=== PATIENT | male | born 1950 | race Caucasian/White ===

== ENCOUNTER 2022-08-30 09:23 | Outpatient (CLI) | payer MEDICARE, BC, SELFPAY ==
[2022-08-30 14:05] LABS: Chloride* 105 mmol/L (96-114)
[2022-08-30 14:06] LABS: Potassium* 4.7 mmol/L (3.6-5.1); Sodium* 139 mmol/L (135-149)
[2022-08-30 14:08] LABS: Creatinine* 0.9 mg/dL (0.5-1.5); Estimated Glomerular Filt Rate 90 ml/min
[2022-08-30 14:09] LABS: Blood Urea Nitrogen* 20 mg/dL (7-30); Calcium* 9.4 mg/dL (8.4-10.6); Carbon Dioxide* 31 mmol/L (20-32); Glucose* 97 mg/dL (60-115)
== END 2022-08-30 09:24 | disposition home or self-care (01) ==
PROVIDERS: PCP Family Medicine; Visit Provider Family Medicine
DX: Z01.818 Encounter for other preprocedural examination (principal)
CPT/HCPCS: 80048

== ENCOUNTER 2022-09-13 07:02 | Day surgery (SDC) | payer MEDICARE, BC, SELFPAY ==
[2022-09-13] VITALS (35 sets, daily range): BP systolic 104–161; BP diastolic 57–96; PULSE 46–87; RESP 12–18; TEMP 35.9–36.8; O2SAT 93–99; BMI 28.8
[2022-09-13] MEDS: LACTATED RINGERS 1000 ML 1,000 ML 100 ML IV ×2 (07:50→10:10)
[2022-09-13] MEDS: ACETAMINOPHEN 500 MG TABLET 1000 MG PO ×3 (07:50→21:44)
[2022-09-13] MEDS: SODIUM CHLORIDE 0.9 % (FLUSH) 10 ML SYRINGE IVF (07:50)
[2022-09-13] MEDS: CELECOXIB 200 MG CAPSULE PO (07:50)
[2022-09-13] MEDS: OXYCODONE (CR) 10 MG TAB.ER.12H PO (07:51)
--- NOTE | 2022-09-13 08:12 | SUR.PREOP ---
TIME?OUT:? PT/RN/MDA?VERIFICATION?OF?SURGICAL?SITE,?PROCEDURE,?AND?CONSENT OBTAINED?PRIOR?TO?INVASIVE?PROCEDURE.[id number]
[2022-09-13] MEDS: MIDAZOLAM HCL 1 MG/ML inj IVP (08:15)
[2022-09-13] MEDS: fentaNYL 100 MCG/2 ML inj IVP (08:15)
--- NOTE | 2022-09-13 08:22 | W.ANESCHARGE ---
Anesthesia Charges Start Date/Time Anesthesia Start Date: 09/13/22 Anesthesia Start Time: 09:05 Stop Date/Time Anesthesia Stop Date: 09/13/22 Anesthesia Stop Time: 11:17 Summary Extremes of Age - Over 70 or under 1: MDA
--- NOTE | 2022-09-13 08:27 | P.NB_ITS ---
Nerve Block Nerve Block Time Seen by Provider: 08:18 Date Seen: 09/13/22 Type of block requested by surgeon for post-operative analgesia: geniculars Side: left Time out performed: Yes Verification of patient name: Yes Verification of date of : Yes Site marking: site marked Name of person performing procedure: Abdiaziz Continuous monitoring Was continuous monitoring of O2 sat, B/P, school bus monitor, recorded every 15 minutes?: Yes Procedure Checklist: sterile prep, needles and gloves Medications given in 5ml increments after negative aspiration: Ropivicaine %: 0.5 mL: 9 Needle gauge: 25 Patient tolerated procedure well: Yes Block Charges Block Charge (with Pro Fee): Genicular Nerve Block Use of Ultrasound Machine for Block: No
--- NOTE | 2022-09-13 08:27 | W.PM.NB ---
Nerve Block Nerve Block Time Seen by Provider: 08:18 Date Seen: 09/13/22 Type of block requested by surgeon for post-operative analgesia: adductor canal Side: left Time out performed: Yes Verification of patient name: Yes Verification of date of : Yes Site marking: site marked Name of person performing procedure: Abdiaziz Continuous monitoring Was continuous monitoring of O2 sat, B/P, satellite project site monitor, recorded every 15 minutes?: Yes Procedure Checklist: sterile prep, needles and gloves Ultrasound guided. Images saved: Yes Medications given in 5ml increments after negative aspiration: Ropivicaine %: 0.5 mL: 20 Needle gauge: 20 Decadron (mg): 10 Precedex (mcg): 25 Patient tolerated procedure well: Yes Additional comments: Needle noted adjacent to nerve Block Charges Block Charge (with Pro Fee): Femoral Nerve Use of Ultrasound Machine for Block: Yes- US Guidance/pain block
[2022-09-13] MEDS: CEFAZOLIN 2 GM INJ IVP (09:17)
[2022-09-13] MEDS: TRANEXAMIC ACID 100 MG/ML INJ 1000 MG IV (09:25)
--- NOTE | 2022-09-13 10:23 | CRLHL7_ITS ---
For Patients: As a result of the Cures Act, medical imaging exams and procedure reports are released immediately into your electronic medical record. You may view this report before your referring provider. If you have questions, please contact your health care provider. Indication: POSTOP TKA Technique: Two views left knee Findings/Impression: Hardware from a left total knee arthroplasty is in satisfactory position. Bone alignment is normal. No sign of acute fracture. Postop changes are within normal limits. Dictated by Luis Eduardo Boyle MD @ 09/13/2022 12:17:15 PM (Electronically Signed)
--- NOTE | 2022-09-13 10:26 | P.ORPRC_ITS ---
Procedure Note Date of procedure: 09/13/22 Procedure: PREOPERATIVE DIAGNOSIS: Left knee osteoarthritis POSTOPERATIVE DIAGNOSIS: Left knee osteoarthritis NAME OF OPERATION: Left total knee arthroplasty SURGEON: Logan Carranza MD ASSISTANT FACILITY MANAGER: Tracie Wynn PA-C ANESTHESIA: Spinal ESTIMATED BLOOD LOSS: 0 mL COMPLICATIONS: None SPECIMENS: None DRAINS: None PREOPERATIVE ANTIBIOTICS: Ancef 2 grams IMPLANTS: 1. J&J Attune #6 posterior stabilized femur 2. #6 fixed-bearing tibia 3. #6 posterior stabilized, 6 mm fixed-bearing polyethylene 4. 41 patella INDICATIONS: The patient is a 71-year-old with a longstanding history of severe, unrelenting left knee pain secondary to end-stage (grade IV) left knee osteoarthritis. Despite appropriate nonoperative management, including activity modification, anti-inflammatories, [id number] pain medication, bracing, physical therapy, and injections they continue to have pain and disability. Operative intervention was offered. The risks, benefits and expected outcomes were discussed in detail. These included but were not limited to: Infection, bleeding, injury to blood vessel or nerve, venous thromboembolism. All questions were answered to their satisfaction. Use of an legal administrative assistant was necessary throughout the case for patient positioning and safety, soft tissue retraction, and closure. PROCEDURE: Spinal anesthesia was administered. The patient was placed supine on the operating table. The legal administrative assistant made sure the patient was positioned appropriately. The lower extremity was prepped and draped in the usual sterile fashion. The limb was exsanguinated with the Taj bandage. The pneumatic tourniquet was inflated to 300 mmHg. A standard anterior incision was made with the knee in flexion. Subcutaneous dissection was sharply taken through fascial layer #1. Full-thickness medial and lateral flaps were elevated. The legal administrative assistant retracted the soft tissues and protected them throughout the case. A standard medial parapatellar approach was made. The patella was everted. The infrapatellar fat pad was preserved. The m enisci and cruciate ligaments were sharply d?brided. Marginal osteophytes were d?brided with the rongeur. The drill was used to penetrate the femoral canal. The canal was aspirated and irrigated with pulse lavage. The intramedullary femoral guide was placed for a 5-degree valgus cut, removing 10 mm off the distal femur. The saw was used to make the cut. Whitesides line and the trans epicondylar axis were marked. The femoral sizing guide was pinned onto the distal femur. Three degrees of external rotation nicely parallels the transepicondylar axis. Pins were placed for posterior referencing. The four-in-one cutting guide was pinned onto the distal femur. The anterior, posterior, and chamfer cuts were made. The legal administrative assistant protected the collateral ligaments. The box cutting guide was pinned. The box cuts were made. The boxed trial was placed and was an excellent fit. Drill holes for the lugs were made. Attention was then turned to the proximal tibia. The extramedullary tibial guide was placed for a neutral varus/valgus cut with 5 degrees of posterior slope, removing 1 mm based off the medial tibial surface. The legal administrative assistant protected the collateral ligaments and the neurovascular bundle. The saw was used to make the cut. Trial components were placed. The knee was nicely balanced in both flexion and extension. The trial components were removed. The tray was placed in appropriate rotation, parallel to our tibial cutting pins. It was pinned by the legal administrative assistant and the drill and the punch were used. The tray was removed. The punch was used again. We placed a bone plug in the femoral canal. Attention was then turned to the patella. Kotlik patellar thickness was 21.5 mm. The lobster claw resection guide was used with the 9.5 mm becca. The saw was used to make the cut. Drill holes were made by the legal administrative assistant. The trial was placed and was an excellent fit. Cancellous surfaces were irrigated with pulse lavage and thoroughly dried by the legal administrative assistant. We cemented the tibial component, then the femoral component. We impacted the 6 mm polyethylene onto the tibial tray. The knee was brought into full extension. We then cemented the patellar component. Excessive cement was removed. The cement was allowed to harden. The knee was taken through a range of motion and was found to be nicely balanced in both flexion and extension. The patella tracks centrally. The legal administrative assistant did a three minute dilute Betadine solution soak. The legal administrative assistant irrigated the wound with 3 liters of normal saline via pulse lavage. The legal administrative assistant reapproximated the extensor mechanism with #1 Vicryl in an interrupted [id number] fashion. The legal administrative assistant then ran the extensor mechanism with a #1 PDO Stratafix. The legal administrative assistant closed the subcutaneous tissues with a 3-0 Stratafix and the skin with a running 3-0 Stratafix in a subcuticular fashion. Glue was used to seal the skin. The legal administrative assistant placed a dry dressing, GABBY stocking, and Polar Care. Sponge and needle counts were correct x2. The patient tolerated the procedure well. There were no apparent complications. They were carefully transferred to the hospital bed and taken to the postanesthesia care unit in satisfactory condition. PLAN: The patient will be mobilized with physical therapy. Aspirin will be used for DVT prophylaxis. They will be discharged to home once medically appropriate.
--- NOTE | 2022-09-13 11:17 | W.ANESCHARGE ---
Anesthesia Charges Start Date/Time Anesthesia Start Date: 09/13/22 Anesthesia Start Time: 09:05 Stop Date/Time Anesthesia Stop Date: 09/13/22 Anesthesia Stop Time: 11:17
--- NOTE | 2022-09-13 15:24 | P.IMCN_ITS ---
Date of Consult Patient: [facility] Patient Consult date: 09/13/22 Requesting Physician: Orthopedics Primary Care Provider: Nico Loja MD Consult Narrative Reason for consult: medication management Narrative: Hai Winchester is a 71 year old male who underwent an uneventful elective left total knee arthroplasty today. He is doing well postoperatively and has no co mplaints. He has had no pain in his knee yet. He had his right knee done in November 2021 and recalls being very constipated afterward. He started taking doc is set at home a few days ago. Also he tells me that he only took 7 of the oxycodone pills he was sent home with last time and was asking if we could send him home with very little or even know oxycodone this time. He still has some of the prescription from last time at home. 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 His is here with him today. Smoking Status: Never smoker Do you use any of these nicotine containing products: None How often do you have a drink containing alcohol: 4 or more times a week Alcohol type: beer How many standard drinks containing alcohol do you have on a typical day: 1 or 2 How often do you have six or more drinks on one occasion: Never AUDIT-C Alcohol total score: 4 Non-prescribed substance use: denies use Caffeine: Yes (coffee 16 oz per day, tea 1 cup/day.) Little interest or pleasure in doing things: not at all Feeling down, depressed, or hopeless: not at all service: Yes Meds Home Medications and Allergies Home Medications Medication Instructions Recorded Confirmed Type acetaminophen 500 mg tablet 1,000 mg PO Q4H PRN 01/07/22 09/13/22 History amoxicillin 500 mg capsule 2,000 mg PO ONCE 01/07/22 09/13/22 History cyanocobalamin (vitamin B-12) 2,500 mcg PO DAILY 01/07/22 09/13/22 History 2,500 mcg tablet ergocalciferol (vitamin D2) 50 mcg 250 mcg PO DAILY 01/07/22 09/13/22 History (2,000 unit) tablet aspirin 81 mg tablet,delayed 81 mg PO QDAY 05/27/22 09/13/22 History release Allergies Allergy/AdvReac Type Severity Reaction Status Date / Time No Known Allergies Allergy Verified 09/13/22 07:29 Exam Narrative: Exam Narrative: General: No acute distress. Awake alert oriented x3. HEENT: Normocephalic atraumatic, pupils equally round and reactive to light and accommodation. Oropharynx clear. Mucous membranes are moist. No cervical lymphadenopathy, thyromegaly or carotid bruits. No JVD. Cardiovascular: Regular rate and rhythm. No murmurs, gallops, or rubs. Chest: No increased work of breathing. Clear to auscultation bilaterally. No crackles or wheezes. Abdomen: Bowel sounds present. Soft, nondistended, nontender. No hepatosplenomegaly or masses. Extremities: Left knee bandage is clean, dry, and intact. No edema, no cyanosis or clubbing. Const: Vital Signs, click to edit/add: Vital Signs - 24 hr 09/13/22 07:36 09/13/22 08:14 09/13/22 08:30 Temperature 98.3 F Pulse Rate 53 L 57 L 52 L Pulse Rate [Left P ulse Oximeter] Respiratory Rate 18 16 16 Blood Pressure 136/79 150/84 H 113/70 Blood Pressure [Ri ght Arm] Pulse Oximetry 97 99 99 Oxygen Delivery Me thod Room Air Nasal Cannula Nasal Cannula Oxygen Flow Rate 2 2 09/13/22 08:45 09/13/22 11:13 09/13/22 11:14 Temperature Pulse Rate 52 L 60 58 L Pulse Rate [Left P ulse Oximeter] Respiratory Rate 16 Blood Pressure 109/68 104/57 L Blood Pressure [Ri ght Arm] Pulse Oximetry 99 98 98 Oxygen Delivery Me thod Nasal Cannula Oxygen Flow Rate 2 09/13/22 11:15 09/13/22 11:17 09/13/22 11:21 Temperature Pulse Rate 61 55 L 51 L Pulse Rate [Left P ulse Oximeter] Respiratory Rate Blood Pressure 105/60 114/65 Blood Pressure [Ri ght Arm] Pulse Oximetry 97 97 97 Oxygen Delivery Me thod Oxygen Flow Rate 09/13/22 11:22 09/13/22 11:23 09/13/22 11:24 Temperature Pulse Rate 51 L 55 L 55 L Pulse Rate [Left P ulse Oximeter] Respiratory Rate 12 Blood Pressure 114/60 Blood Pressure [Ri ght Arm] Pulse Oximetry 97 96 97 Oxygen Delivery Me thod Oxygen Flow Rate 09/13/22 11:25 09/13/22 11:26 09/13/22 11:27 Temperature Pulse Rate 55 L 57 L 52 L Pulse Rate [Left P ulse Oximeter] Respiratory Rate Blood Pressure 114/60 Blood Pressure [Ri ght Arm] Pulse Oximetry 97 97 96 Oxygen Delivery Me thod Oxygen Flow Rate 09/13/22 11:28 09/13/22 11:29 09/13/22 11:12 Temperature 97.4 F L 97.4 F L Pulse Rate 55 L 52 L 55 L Pulse Rate [Left P ulse Oximeter] Respiratory Rate 12 14 Blood Pressure 110/64 104/57 L Blood Pressure [Ri ght Arm] Pulse Oximetry 97 96 97 Oxygen Delivery Me thod Room Air Oxygen Flow Rate 09/13/22 11:15 09/13/22 11:35 09/13/22 11:40 Temperature Pulse Rate 49 L 49 L Pulse Rate [Left P ulse Oximeter] Respiratory Rate 14 14 Blood Pressure 105/60 111/64 113/62 Blood Pressure [Ri ght Arm] Pulse Oximetry 96 95 94 Oxygen Delivery Me thod Room Air Room Air Room Air Oxygen Flow Rate 2 2 09/13/22 11:45 09/13/22 11:58 09/13/22 12:00 Temperature 96.8 F L 97 F L Pulse Rate 50 L 52 L Pulse Rate [Left P ulse Oximeter] 48 L Respiratory Rate 14 14 14 Blood Pressure 119/77 Blood Pressure [Ri ght Arm] 118/65 130/66 Pulse Oximetry 96 98 Oxygen Delivery Me thod Room Air Room Air Room Air Oxygen Flow Rate 2 09/13/22 12:15 09/13/22 12:30 09/13/22 12:45 Temperature 96.7 F L 96.7 F L 96.8 F L Pulse Rate Pulse Rate [Left P ulse Oximeter] 46 L 49 L 48 L Respiratory Rate 14 14 14 Blood Pressure Blood Pressure [Ri ght Arm] 122/59 L 123/70 139/73 Pulse Oximetry 95 98 97 Oxygen Delivery Me thod Room Air Room Air Room Air Oxygen Flow Rate 2 09/13/22 13:15 09/13/22 13:45 09/13/22 14:45 Temperature 96.8 F L 97 F L 97.6 F Pulse Rate Pulse Rate [Left P ulse Oximeter] 58 L 53 L 61 Respiratory Rate 14 14 14 Blood Pressure Blood Pressure [Ri ght Arm] 127/96 H 127/73 161/79 H Pulse Oximetry 98 98 97 Oxygen Delivery Me thod Room Air Room Air Room Air Oxygen Flow Rate 09/13/22 15:00 09/13/22 15:00 Temperature Pulse Rate Pulse Rate [Left P ulse Oximeter] Respiratory Rate 14 Blood Pressure Blood Pressure [Ri ght Arm] Pulse Oximetry 98 Oxygen Delivery Me thod Oxygen Flow Rate Labs Labs: Ordering Physician: Logan Carranza M.D. Date of Service: 09/13/22 Procedure(s): XR knee LT 2V Accession Number(s): [id number] cc: Logan Carranza M.D.; Nico Loja M.D.~ For Patients: As a result of the Cures Act, medical imaging exams and procedure reports are released immediately into your electronic medical record. You may view this report before your referring provider. If you have questions, please contact your health care provider. Indication: POSTOP TKA Technique: Two views left knee Findings/Impression: Hardware from a left total knee arthroplasty is in satisfactory position. Bone alignment is normal. No sign of acute fracture. Postop changes are within normal limits. Dictated by Luis Eduardo Boyle MD @ 09/13/2022 12:17:15 PM (Electronically Signed) Assessment and Plan Assessment and plan (1) Status post total knee replacement, left: Problem comment: 09/13/22 Tere Elective, doing well. Cares per ortho. BID baby ASA for VTE prophylaxis. Status: Acute (2) Obstructive sleep apnea treated with continuous positive airway pressure (CPAP): Status: Chronic (3) Bradycardia: Problem comment: Takes no prescription medications at home. Suspect this was secondary to anesthesia. This has already resolved. Status: Resolved Plan VTE
[2022-09-13] MEDS: CEFAZOLIN 2 GM in 0.9 % SODIUM CHLORIDE Mini-bag 100 ML IVPB ×2 (17:15→23:52)
[2022-09-13] MEDS: OXYCODONE 5 MG TABLET PO ×2 (18:23→20:52)
--- NOTE | 2022-09-13 18:30 | PC.NURSE ---
End of Shift: Patient pleasant and cooperative. Patient vitally stable, lungs clear, BS WNL, IV running LR @75. Patient rates pain at most 4/10, 5 mg of oxy given once, and scheduled tylenol. Patient 1 assist, walker, currently up in chair. Patient tolerating regular diet. Patient had 1 small emesis right after therapy, and reported no nausea after emesis. Patient used toilet once only urinating 50ml.
[2022-09-13] MEDS: 0.9 % SODIUM CHLORIDE 500 ML IV (19:17)
[2022-09-13] MEDS: SENNOSIDES 1 TAB TABLET 2 TAB PO (20:52)
[2022-09-13] MEDS: ASPIRIN 81 MG TABLET EC PO (20:52)
[2022-09-13] MEDS: LACTATED RINGERS 1000 ML 1,000 ML 75 ML IV (23:48)
[2022-09-14] MEDS: OXYCODONE 5 MG TABLET PO ×2 (01:01→08:40)
[2022-09-14 03:00] VITALS: BP 143/76; PULSE 65; RESP 16; TEMP 36.4; O2SAT 95
[2022-09-14] MEDS: ACETAMINOPHEN 500 MG TABLET 1000 MG PO (03:35)
--- NOTE | 2022-09-14 04:53 | PC.NURSE ---
Addendum entered by Chente Ware RN 09/14/22 05:54: Hypoactive bowel movement and pt has not pass gas yet. Original Note: Shift note: Pt is doing with A1, walker and GB. Able to mobilized self in bed. Pain has been rated at 5 at maximum. Dressing appears clean and dry. At 1900 when quality analyst/technical writer took over from PM shift pt had only 50ml of urine. N/S 500ml bolus given and pt had 600ml an hour after the infusion was started. Started regular diet and oral fluid with no complication. Used urinal most of the time per his request.
[2022-09-14 06:37] LABS: Eosinophils Percent Auto 0.1 % (0.0-7.0); Hematocrit 37.4 % (37.0-53.0); Immature Granulocytes Pct Auto 0.2 %; Lymphocytes Percent Auto 6.3 % (20-44); Mean Corpuscular HGB Conc 35 gm/dL (32-36); Mean Corpuscular Hemoglobin 29 pg (26-34); Mean Corpuscular Volume 85 fL (80-100); Neutrophils Percent Auto 87.4 % (42.0-72.0); Platelet Count* 169 K/uL (140-440); Red Blood Count 4.42 m/uL (4.30-5.90); White Blood Count* 12.61 K/uL (4.50-11.00)
[2022-09-14 06:40] LABS: Slide Review Reflex No
[2022-09-14 06:48] LABS: Potassium* 4.1 mmol/L (3.6-5.1); Sodium* 136 mmol/L (135-149)
[2022-09-14 06:49] LABS: INR 1.15 (0.91-1.10); Prothrombin Time 15.4 Seconds
[2022-09-14 06:51] LABS: Blood Urea Nitrogen* 19 mg/dL (7-30); Creatinine* 0.8 mg/dL (0.5-1.5); Est. Creatinine Clearance* 63.65; Estimated Glomerular Filt Rate 93 ml/min
[2022-09-14 07:00] VITALS: BP 173/88; PULSE 67; RESP 16; TEMP 36.6; O2SAT 97
[2022-09-14] MEDS: CEFAZOLIN 2 GM in 0.9 % SODIUM CHLORIDE Mini-bag 100 ML IVPB (08:09)
--- NOTE | 2022-09-14 08:29 | P.ORPN_ITS ---
Subjective Subjective Time Seen by Provider: 07:15 Date Seen: 09/14/22 Principal diagnosis: Status post left total knee arthroplasty Interval history: Hai is comfortable this morning. He denies nausea, vomiting. He plans to discharge to home today. He still has some oxycodone from his previous knee replacement. Ortho Exam Narrative Exam Narrative: Alert and oriented x3. Patient is in no acute distress. Converses without labored breathing. Hearing is grossly intact. Ambulates with a walker. Examination of the left knee shows the dressing is intact. No palpable effusion. Minimal soft tissue edema about the left knee. Quad strength is strong. CMS intact left lower extremity. No erythema no ecchymosis no sign of infection. Bilateral calves are soft and nontender. Const Vital Signs, click to edit/add: Vital Signs - 24 hr 09/13/22 08:30 09/13/22 08:45 09/13/22 11:13 Temperature Pulse Rate 52 L 52 L 60 Pulse Rate [Left Pulse Oximeter] Respiratory Rate 16 16 Blood Pressure 113/70 109/68 Blood Pressure [Right Arm] Pulse Oximetry 99 99 98 Oxygen Delivery Method Nasal Cannula Nasal Cannula Oxygen Flow Rate 2 2 09/13/22 11:14 09/13/22 11:15 09/13/22 11:17 Temperature Pulse Rate 58 L 61 55 L Pulse Rate [Left Pulse Oximeter] Respiratory Rate Blood Pressure 104/57 L 105/60 Blood Pressure [Right Arm] Pulse Oximetry 98 97 97 Oxygen Delivery Method Oxygen Flow Rate 09/13/22 11:21 09/13/22 11:22 09/13/22 11:23 Temperature Pulse Rate 51 L 51 L 55 L Pulse Rate [Left Pulse Oximeter] Respiratory Rate 12 Blood Pressure 114/65 Blood Pressure [Right Arm] Pulse Oximetry 97 97 96 Oxygen Delivery Method Oxygen Flow Rate 09/13/22 11:24 09/13/22 11:25 09/13/22 11:26 Temperature Pulse Rate 55 L 55 L 57 L Pulse Rate [Left Pulse Oximeter] Respiratory Rate Blood Pressure 114/60 114/60 Blood Pressure [Right Arm] Pulse Oximetry 97 97 97 Oxygen Delivery Method Oxygen Flow Rate 09/13/22 11:27 09/13/22 11:28 09/13/22 11:29 Temperature 97.4 F L Pulse Rate 52 L 55 L 52 L Pulse Rate [Left Pulse Oximeter] Respiratory Rate 12 Blood Pressure 110/64 Blood Pressure [Right Arm] Pulse Oximetry 96 97 96 Oxygen Delivery Method Room Air Oxygen Flow Rate 09/13/22 11:12 09/13/22 11:15 09/13/22 11:35 Temperature 97.4 F L Pulse Rate 55 L 49 L Pulse Rate [Left Pulse Oximeter] Respiratory Rate 14 14 Blood Pressure 104/57 L 105/60 111/64 Blood Pressure [Right Arm] Pulse Oximetry 97 96 95 Oxygen Delivery Method Room Air Room Air Oxygen Flow Rate 2 09/13/22 11:40 09/13/22 11:45 09/13/22 11:58 Temperature 96.8 F L Pulse Rate 49 L 50 L 52 L Pulse Rate [Left Pulse Oximeter] Respiratory Rate 14 14 14 Blood Pressure 113/62 119/77 Blood Pressure [Right Arm] 118/65 Pulse Oximetry 94 96 Oxygen Delivery Method Room Air Room Air Room Air Oxygen Flow Rate 2 2 09/13/22 12:00 09/13/22 12:15 09/13/22 12:30 Temperature 97 F L 96.7 F L 96.7 F L Pulse Rate Pulse Rate [Left Pulse Oximeter] 48 L 46 L 49 L Respiratory Rate 14 14 14 Blood Pressure Blood Pressure [Right Arm] 130/66 122/59 L 123/70 Pulse Oximetry 98 95 98 Oxygen Delivery Method Room Air Room Air Room Air Oxygen Flow Rate 2 09/13/22 12:45 09/13/22 13:15 09/13/22 13:45 Temperature 96.8 F L 96.8 F L 97 F L Pulse Rate Pulse Rate [Left Pulse Oximeter] 48 L 58 L 53 L Respiratory Rate 14 14 14 Blood Pressure Blood Pressure [Right Arm] 139/73 127/96 H 127/73 Pulse Oximetry 97 98 98 Oxygen Delivery Method Room Air Room Air Room Air Oxygen Flow Rate 09/13/22 14:45 09/13/22 15:00 09/13/22 15:00 Temperature 97.6 F Pulse Rate Pulse Rate [Left Pulse Oximeter] 61 Respiratory Rate 14 14 Blood Pressure Blood Pressure [Right Arm] 161/79 H Pulse Oximetry 97 98 Oxygen Delivery Method Room Air Oxygen Flow Rate 09/13/22 15:45 09/13/22 16:45 09/13/22 18:00 Temperature 97.8 F 98.1 F 98 F Pulse Rate Pulse Rate [Left Pulse Oximeter] 75 75 84 Respiratory Rate 14 14 14 Blood Pressure Blood Pressure [Right Arm] 149/79 H 155/84 H 142/82 H Pulse Oximetry 98 96 94 Oxygen Delivery Method Room Air Room Air Room Air Oxygen Flow Rate 0 0 09/13/22 19:00 09/13/22 23:00 09/13/22 23:00 Temperature 98.3 F 97.9 F Pulse Rate Pulse Rate [Left Pulse Oximeter] 87 65 Respiratory Rate 16 16 Blood Pressure Blood Pressure [Right Arm] 137/76 131/72 Pulse Oximetry 95 95 93 Oxygen Delivery Method Room Air Room Air Oxygen Flow Rate 09/14/22 03:00 Temperature 97.5 F L Pulse Rate Pulse Rate [Left Pulse Oximeter] 65 Respiratory Rate 16 Blood Pressure Blood Pressure [Right Arm] 143/76 H Pulse Oximetry 95 Oxygen Delivery Method Room Air Oxygen Flow Rate Assessment and Plan Assessment and plan (1) Status post total knee replacement, left: Problem details: 09/13/22 Tere Elective, doing well. Cares per ortho. BID baby ASA for VTE prophylaxis. Status: Acute Assessment and Plan: Plan for discharge is today to home if they meet discharge criteria. DVT prophylaxis includes aspirin 81 mg twice daily x1 month, Curtis stockings x1 month may remove for 1 hr per day, frequent ambulation Remove dressing in 1 week. Observe wound and phone Orthopedics with any questions or concerns Return to clinic in 1 week for a wound check Return to clinic in [address] Carranza Minimize narcotic use. Wean off and discontinue soon as possible. Activities as tolerated. No strenuous activity. Outpatient physical therapy as scheduled. Ice and elevate the operative extremity. No restriction on ice. We discussed that I have already sent his oxycodone to his pharmacy. He can deny the oxycodone upon poultry picker and therefore if he needs it the prescription, it will be there for him. (2) Obstructive sleep apnea treated with continuous positive airway pressure (CPAP): Status: Chronic (3) Bradycardia: Problem details: Takes no prescription medications at home. Suspect this was secondary to anesth esia. This has already resolved. Status: Resolved
[2022-09-14] MEDS: SENNOSIDES 1 TAB TABLET 2 TAB PO (08:41)
[2022-09-14] MEDS: ASPIRIN 81 MG TABLET EC PO (08:41)
[2022-09-14 09:06] VITALS: BP 119/77; PULSE 52; RESP 16; TEMP 36.4
--- NOTE | 2022-09-14 10:24 | PC.SOCIAL ---
Met with pt. to discuss discharge planning needs. This is pt.'s second joint surgery and pt. plans to discharge home with spouse support. Pt. has everything he needs on one level. Pt. is aware he can contact social group worker if he needs additional resources for discharge.
[2022-09-14 10:34] VITALS: BP 119/77; PULSE 52; RESP 16; TEMP 36.4
--- NOTE | 2022-09-14 11:33 | PC.NURSE ---
Discharge: Pt. alert and oriented x4. tolerating reg diet. Pt. ambulates indep. to BR and from bed to chair. tolerating activity well. Dressing to left Knee C/D/I. pt. VSS denies chest pain, SOB, Pain, N/V. Pt. premedicated with 5mg oxy prior to therapies and tolerated well. see eMAR. Pt. discharged to home today accompanied by spouse at 1050. Pt. signed discharge instructions and verbalized understanding of instructions given. Belongings sheet signed.
== END 2022-09-14 10:50 | disposition home or self-care (01) ==
LOC: OR 07:03 → MEDSURG 07:06
PROVIDERS: PCP Family Medicine; Visit Provider Orthopaedic Surgery
PROC: (CPT 27447; principal; 2022-09-13 08:45)
DX: M17.12 Unilateral primary osteoarthritis, left knee (principal); G47.33 Obstructive sleep apnea (adult) (pediatric); Z99.89 Dependence on other enabling machines and devices; R00.1 Bradycardia, unspecified
CPT/HCPCS: 27447; 01402; 36415; 73560; 76942; 82565; 84132; 84295; 84520; 85025; 85610; 97110; 97116; 97161; 97165; 99100; A9270; C1776; J0690; J1100; J2250; J2405; J2704; J2795; J3010; J7120

== ENCOUNTER 2022-10-28 11:00 | Outpatient (RCR) | payer MEDICARE, BC, SELFPAY ==
--- NOTE | 2022-09-16 17:28 | PT.OPEX ---
PT [place] Outpatient Eval PT [facility] Outpatient Eval Start: 09/16/22 12:43 Freq: Status: Active Protocol: Document 09/16/22 12:49 EUGENIA (Rec: 09/16/22 17:20 EUGENIA [id number]) E-signed By Shannan Hinton DPT Physical Therapy Outpatient Evaluation Insurance Information Recert Due Date 12/15/22 Insurance Name Medicare B,Blue Cross/Blue Shield Medical Diagnosis s/p L TKA 09/13/22 Treating Diagnosis s/p L TKA 09/13/22 with L knee pain, impaired L knee ROM, impaired L knee/LE mobility/ strength, limping/antalgic gait, limited tolerance for extended standing/walking Subjective Subjective Patient reports having L TKA surgery 09/13/22. He d/c home with spouse the next day. Reports doing well at home, using FWW for amb. He is getting HEP in regularly, spouse assist with exercises as needed. Pain has been tolerable with pain med, tylenol, and icing. Pain rated 4-5/10. Patient had R TKA about 1 year ago, states R knee is doing well. Date of Last Physician Visit 09/14/22 Date of Surgery (If applicable) 09/13/22 Current Work Status Retired Assessment Assessment/Impression Patient is a 71 year old male s/p L TKA 09/13/22 with L knee pain, impaired L knee ROM, impaired L knee/LE mobility/ strength, limping/antalgic gait, limited tolerance for extended standing/walking. Pain rated 4-5/10. Patient with weak quad set. He is needing assist with SAQ, SLR, LAQ exercises. Reviewed TKA exercises this session. L knee ROM 0-4-96 degrees. Patient is amb with FWW. Gait is slow, limping, antalgic. Dressing remains in place. Patient has f/u with [facility] next week. Patient would benefit from skilled PT for pain/swelling management, improved L knee ROM, improved mobility/strength L knee/LE, improved gait, and establishment of HEP. Plan of Care Rehabilitation Potential Good Physical Therapy Goals 1. Decrease L knee pain to less than/equal to 3/10 with daily activities and with the progression of PT activities over the next 4-6 weeks. 2. Improve L knee ROM to 0- 120 degrees or greater over the next 6-8 weeks for return to functional knee ROM and improved gait mechanics. 3. Improve L knee/LE mobility /strength over the next 6-8 weeks for return to transfers with ease, return to extended standing/ walking for ADLs/household activities, and for improved gait mechanics with/without AD. 4. Patient will be I with HEP within 8 weeks for progression toward above goals, ongoing self-management of pain/swelling, ongoing self improvements in R knee ROM/strength and for return to normal gait with/ without AD. Coordination/Communication With Referral Source Treatment Plan/Direct Interventions Gait Training,Manual Therapy, Therapeutic Exercises Frequency/Duration 2x/week Patient Will Be Discharged From Therapy Completion of LTG(s),Skills Plateau,Independent w/HEP, Independently Progressing Evaluation Billing Untimed Code Treatment Minutes 20 Complexity Moderate Certification Information Initial Certification Date 09/16/22 Ending Certification Date 12/15/22 Provider Signature Shows Agreement With POC & Medical Necessity Physician Signature & Date Requested Please Sign/Date Here Physician Comment/Change : Physician NPI Number #
== END 2023-01-26 23:59 | disposition home or self-care (01) ==
PROVIDERS: PCP Family Medicine; Visit Provider Orthopaedic Surgery
DX: M17.12 Unilateral primary osteoarthritis, left knee (principal); Z51.89 Encounter for other specified aftercare
CPT/HCPCS: 97110; 97162; A9270; J2250; J3010

== ENCOUNTER 2023-09-20 08:29 | Outpatient (CLI) | payer MEDICARE, BC, SELFPAY | END 2023-09-20 08:30 | disposition home or self-care (01) | PROVIDERS: PCP Family Medicine; Visit Provider Family Medicine | DX: R03.0 Elevated blood-pressure reading, without diagnosis of hypertension (principal); Z13.220 Encounter for screening for lipoid disorders; Z12.5 Encounter for screening for malignant neoplasm of prostate; E53.8 Deficiency of other specified B group vitamins; E78.5 Hyperlipidemia, unspecified | CPT/HCPCS: 80053; 80061; 82607; G0103 ==

== ENCOUNTER 2024-04-24 08:10 | Outpatient (CLI) | payer MEDICARE, BC, SELFPAY | END 2024-04-24 08:11 | disposition home or self-care (01) | LOC: NFLDREF 10:34 | PROVIDERS: PCP Family Medicine; Referring Provider Family Medicine; Visit Provider Family Medicine | DX: E78.5 Hyperlipidemia, unspecified (principal) | CPT/HCPCS: 80061 ==

== ENCOUNTER 2024-12-09 11:15 | Outpatient (RCR) | payer MEDICARE, BC, SELFPAY ==
--- NOTE | 2024-10-04 10:29 | PT.OPE ---
PT [place] Outpatient Eval PT [facility] Outpatient Eval Start: 10/02/24 10:21 Freq: Status: Active Protocol: Document 10/02/24 10:22 KATHYAMalvin (Rec: 10/02/24 10:24 BRITTNEE [id number]) E-signed By Sorin Ng DPT, MS Physical Therapy Outpatient Evaluation Insurance Information Recert Due Date 12/31/24 Insurance Name Medicare B,Blue Cross/Blue Shield Medical Diagnosis Radiculopathy, cervical region Treating Diagnosis R-sided neck pain with R-sided radicular sxs, decreased CS flexibility and ROM, posture dysfunction, and decreased deep CS flex and B UE weakness . Subjective Preferred Name Ray Subjective Pt is a 73 y.o male who presents to PT with c/o acute onset of B (R>L) CS pain and tightness with radicular sxs of insidious onset 4-6 weeks ago. Describes waking with high levels of B CS pain and nearly constant radicular sxs the day after helping move heavy boxes of books. Describes sxs as a deep ache in his lower neck with near constant B hand numbness, shooting and burning pain down his R medial forearm to his 1st -3rd digits, especially with lifting, reaching and grasping. Also notes B shoulder weakness with difficulty lifting and reaching above shoulder height . Prednisone tx helped decrease intensity of sxs but sxs remain. Wakes several times per night due to neck pain and B hand numbness. Recent radiographs found multi -level CS DDD and OA with compression at B C5-6. PSH of B TKA. AGGR factors: sleeping, turning head, driving, gripping, lifting, reaching. ALLEV factors: warm shower, Advil, prednisone, rest. 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 Pain Comments 2-7/10 CS Min - mod numbness and tingling B whole hands Current Work Status Retired Occupation Retired [employer] Precautions Therapy Limitations/Systems Review Not Limited Objective Functional Test Performed & Score NDI: 60% Assessment Assessment/Impression Pt displays signs and symptoms consistent with dx of B CS radiculopathy. Objectively pt displays B (R>L) CS muscle hypertonicity, B CS hypomobility, decreased B CS and R UE flexibility and ROM, posture dysfunction, and decreased R UE, seed tester and deep CS strength. + R CS radicular testing cluster with decreased B seed tester strength. CS flex directional preference of movement with elevated sxs with ext. Decreased CS ROM, tightness and hypertonicity contributing to sxs. Good response to manual CS traction with decreased pain levels and radicular sxs during and following. Mechanical CS traction will be trialed during future visits. Excellent response to MT, stretching and strengthening exercises with decreased pain levels and improved CS AROM following. He would benefit greatly from continued skilled therapy to address these limitations. Primary Functional Limitations Sleeping, turning head, driving, gripping, lifting, reaching. Plan of Care Rehabilitation Potential Excellent Physical Therapy Goals Short-term goals to be completed in 4 weeks: 1. Pt will display >50% improvement in I sitting posture for >1 consecutive PT visit 2. Pt will report improved quality of sleep waking <3x per night due to R shoulder pain, and R-sided CS pain and radicular sxs for >3 consecutive nights. Long-term goals to be completed in 10 weeks: 1. Pt will be independent and compliant with HEP 2. Pt will report >50% improvement in NDI questionnaire to significantly improve lucien to all functional activities. 3. Pt will report resolution of B CS radicular sxs with all daily and work activities and sleep for >3 consecutive days . 4. Pt will display improved B CS rot AROM >65 deg to improve tolerance and safety with driving. Coordination/Communication With Referral Source Treatment Plan/Direct Interventions Joint Mobilization,Manual Therapy,Therapeutic Exercises, Traction (Mechanical) Frequency/Duration 1-2x per week for at least 8- 12 visits, decreasing visit frequency, as able. Patient Will Be Discharged From Therapy Completion of LTG(s),Skills Plateau,Independent w/HEP, Independently Progressing Evaluation Billing Untimed Code Treatment Minutes 25 Complexity Moderate Certification Information Initial Certification Date 10/02/24 Ending Certification Date 12/31/24 Provider Signature Required Yes Provider Signature Shows Agreement With POC & Medical Necessity Physician NPI Number Write NPI# Here Physician Comment/Change : Physician Signature & Date Requested Please Sign/Date Here
--- NOTE | 2024-12-09 15:04 | PT.OPDN ---
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 Facet joints: Moderate to severe diffuse arthrosis. Referring MD Desiree León, [facility] (Omar Loja MD primary) Subjective Preferred Name RAY Subjective Ray reports for follow up reporting that although he does notice improvement in hand pain and edema after working on pecs, the carry over is limited to a day or less and he still struggles with return of symptoms. He has been trying to sleep on a smaller pillow as he was sleeping on a very large pillow on his back, which he knows was accentuating his forward neck posture. Pain Comments 1-6/10 CS R>L tingling index, middle and half of ring finger, sometimes thumb. Could also be C7 dermatome, however distribution is pretty specifically only half of the ring finger. Date of Last 09/23/24 Physician Visit Home Exercise Home Exercise Progressed and modified HEP today. PDF was printed for Comments patient. Instructions were provided for accessing HEP on [employer] on phone. Access Code: [email or web address] URL: [email or web address] Date: 12/09/2024 Prepared by: Pina Gómez Exercises - Supported Chin Tuck - 2-3 x daily - 5-7 x weekly - 1 -2 sets - 10 reps - 3-5 second hold - neck strength/ posture exercise type - Wall W Thoracic Extension - 2-3 x daily - 5-7 x weekly - 2 sets - 10 reps - 2-3 seconds hold - strength exercise type - Seated Shoulder Blade Squeeze - 2-3 x daily - 5-7 x weekly - 2 sets - 10 reps - 2-3 seconds hold - strength exercise type - Standing Backward Shoulder Rolls - 2-3 x daily - 5-7 x weekly - 2 sets - 10 reps - 2-3 seconds hold - stretch exercise type - Supine Median Nerve Stretch - 2-3 x daily - 5-7 x weekly - 1-2 reps - 10-30 second hold - stretch exercise type - Standing Pec Stretch at Wall - 1-2 x daily - 5-7 x weekly - 1-2 reps - 20-30 seconds hold - stretch exercise type - Multidirectional Pendulum - 1-2 x daily - 5-7 x weekly - 30-90 seconds hold - range of motion exercise type - Seated Shoulder Flexion AAROM with Alejandra Behind - 1 -2 x daily - 5-7 x weekly - 3 sets - 10 reps - 3-5 second hold - range of motion exercise type - Wall Roots - 1-2 x daily - 5-7 x weekly - 2 sets - 10 reps - 2-3 second hold - range of motion exercise type - Standing Median Nerve [place] - 1-2 x daily - 5-7 x weekly - 2 sets - 10 reps - 2-3 seconds hold - strength exercise type - Ulnar Nerve Flossing - 1-2 x daily - 5-7 x weekly - 2 sets - 10 reps - 2-3 seconds hold - strength exercise type - Radial Nerve Flossing - 1-2 x daily - 5-7 x weekly - 2 sets - 10 reps - 2-3 seconds hold - strength exercise type - Supine Chest Stretch with Elbows Bent - 1 x daily - 5-7 x weekly - 2 sets - 10 reps - 5-10 seconds hold - stretch exercise type Patient Education - Sleeping Positions Objective Other/Pertinent Prison Warden strength: B 20, 20 and 20 lbs force Objective Tingling index, middle and ring finger - pretty specifically only half of the ring finger Significant FHON posture, very tight pec minor UE range of motion symmetrical but limited to 160 elevation. Functional Test Eval NDI: 60% Performed & Score Discharge NDI: 14% Patient Instructed Yes in Risks/Benefits Therapeutic Exercise Therapeutic Exercise 15 Minutes (minutes) Therapeutic Exercise - Standing pec stretch on foam roller at wall. : To Restore - Supine pec minor/major stretch Functional Status - Multidirectional Pendulum - Seated Shoulder Flexion AAROM with Alejandra Behind - Wall Breaststroke - Standing Median Nerve [place] - Ulnar Nerve Flossing - Radial Nerve Flossing Manual Therapy Techniques Manual Therapy 30 Minutes (minutes) Manual Therapy - Supine manual STM/MFR for TrP releases at bilateral Techniques sternocleidomastoid, scalenes, subclavius, pectoralis major, pectoralis minor muscle group(s) with mild release noted. Patient tolerated well and instructed in post mobilization after care. Neuromuscular Re-Ed Neuromuscular - Neuromuscular jenelle graded muscle activation for Reeducation Comments improved motor control at bilateral pectoralis minor, pectoralis major muscle group(s) to improve cervical posture, cervical motor control, cervical mobility dynamics, shoulder mobility dynamics, scapular motor control. - Uducated on optimal supine sleeping position - his current pillow pushes him into significant forward head position Dry Needling Dry Needle Comments Patient consents to dry needling using sterile dry needle technique in supine position to bilateral pectoralis MAJOR muscle group(s) at Axilla and B subscapularis at Axilla with Single Pointer XL. Sufficient twitch and homeostasis along with notable tissue softening was obtained. Patient tolerated well with no residual issues; all needles were removed. Post treatment recommendations discussed with patient. Next visit plan to DN pec major as it is extremely tight in axilla. Potential risks and benefits of dry needling discussed in detail with patient, including post treatment muscle soreness, risk of infection, risk of bruising and risk of pneumothorax. Self-reported patient precaution(s) include on Aspirin 81, history of fainting; appropriate modifications to plan of care have been implemented to accommodate reported precautions. Patient verbalizes understanding of risks and wishes to proceed with treatment. Verbal and written consent (first visit) obtained. Treatment Minutes Timed Code Treatment 45 Minutes Total Treatment Time 45 Billing Units Manual Therapy Units 2 Therapeutic Exercise 1 Units Assessment/Impression Assessment/ Ray reports minimal improvement to symptoms, however Impression his NDI score improved with statistical significance. He initial neck pain has improved, but his hand symptoms are essentially status quo. He is struggling with median nerve distribution numbness/tingling and R> L hand edema in the setting of very tight pec minor/pec major, significant FHON and questionable carpal tunnel (he is unable to complete a Phalen's exam due to poor wrist flexor range of motion. Mobilization at carpal tunnel and pec minor/major have been helpful but temporarily. Will send update to his primary care provider Omar Loja MD, PT status specifically has plateaued. Plan of Care Physical Therapy Short-term goals to be completed in 4 weeks: Goals 1. Pt will display >50% improvement in I sitting posture for >1 consecutive PT visit 2. Pt will report improved quality of sleep waking <3x per night due to R shoulder pain, and R-sided CS pain and radicular sxs for >3 consecutive nights. Long-term goals to be completed in 10 weeks: 1. Pt will be independent and compliant with HEP 2. Pt will report >50% improvement in NDI questionnaire to significantly improve lucien to all functional activities. 3. Pt will report resolution of B CS radicular sxs with all daily and work activities and sleep for >3 consecutive days. 4. Pt will display improved B CS rot AROM >65 deg to improve tolerance and safety with driving. Daily Plan of Care Continue per POC Daily Plan of Care Medial nerve entrapment versus C7 radiculopathy? Comments Discharge Note Discharge Summary Ray reports minimal improvement to symptoms, however his NDI score improved with statistical significance. He initial neck pain has improved, but his hand symptoms are essentially status quo. He is struggling with median nerve distribution numbness/tingling and R> L hand edema in the setting of very tight pec minor/pec major, significant FHON and questionable carpal tunnel (he is unable to complete a Phalen's exam due to poor wrist flexor range of motion. Mobilization at carpal tunnel and pec minor/major have been helpful but temporarily. Will send update to his primary care provider Omar Loja MD, PT status specifically has plateaued. Date of First Visit 10/02/24 for Therapy Date of Last Visit 12/09/24 for Therapy Initial Primary Sleeping, turning head, driving, gripping, lifting, Functional reaching. Limitations Pain Level at Neck pain has much improved, he mainly has numbness and Discharge tingling plus edema in R>L hand. Recommendations/ Progress Reached Plateau Reason for Discharge Thank You For This Thank you for this physical therapy referral. Discharge Referral is attached. Signature not required. His NDI score has dropped significantly, but he continues to have significant R>L median nerve numbness and tingling and B hand edema worse in the morning. He has significantly tight pectoralis minor and major with likely TOS, but neck pain has improved. Questioning median nerve entrapment at carpal tunnel versus thoracic outlet versus cervical. Due to edema in hands he may benefit from occupational therapy. Please let me know if you have any questions [phone], Pina Gómez, PT, DPT.
== END 2024-12-23 15:35 | disposition home or self-care (01) ==
PROVIDERS: PCP Family Medicine; Visit Provider Registered Nurse
DX: M54.12 Radiculopathy, cervical region (principal); Z51.89 Encounter for other specified aftercare
CPT/HCPCS: 97110; 97112; 97140; 97162

== ENCOUNTER 2025-01-06 15:37 | Outpatient (CLI) | payer MEDICARE, BC, SELFPAY ==
--- NOTE | 2025-01-06 16:00 | CRLHL7_ITS ---
For Patients: As a result of the Cures Act, medical imaging exams and procedure reports are released immediately into your electronic medical record. You may view this report before your referring provider. If you have questions, please contact your health care provider. INDICATION: Paresthesias TECHNIQUE: Noncontrast sagittal T1, T2, STIR and axial GRE sequences are provided. No comparisons. FINDINGS: Solid anterior bony fusion of C3-4 with solid posterior bony fusion of C2-4. The overall stature, alignment and intrinsic marrow signal within the remainder of the cervical spine is within normal limits. Cervical cord is normal. C2-3, C3-4: No central canal or foraminal narrowing. C4-5: Mild disc osteophyte complex results in mild central canal narrowing. Asymmetric uncovertebral joint facet arthropathy results in moderate to severe left and moderate right foraminal narrowing. C5-6: Mild disc osteophyte complex results in mild central canal narrowing. Asymmetric uncovertebral joint facet arthropathy results in moderate to severe left and [id number] right foraminal narrowing. C6-7: Asymmetric uncovertebral joint and facet arthropathy results in moderate to severe left and no right foraminal narrowing. No central canal narrowing. C7-T1: Minimal degenerative anterolisthesis with minor unroofing of the intervertebral disc space results in no central canal or foraminal narrowing. IMPRESSION: 1. Moderate to severe left and moderate right foraminal narrowing with mild central canal narrowing at C4-5. 2. Moderate to severe left and [id number] right foraminal narrowing with mild central canal narrowing at C5-6. 3. Moderate to severe left C6-7 foraminal narrowing. 4. Milder degenerative changes within the remainder of the cervical spine as outlined above. Dictated by Rasheed Lares MD @ 01/07/2025 10:53:48 AM (Electronically Signed)
== END 2025-01-06 15:38 | disposition home or self-care (01) ==
LOC: MRI 15:39
PROVIDERS: PCP Family Medicine; Visit Provider Family Medicine
DX: R20.2 Paresthesia of skin (principal); M50.221 Other cervical disc displacement at C4-C5 level; M50.222 Other cervical disc displacement at C5-C6 level; M50.223 Other cervical disc displacement at C6-C7 level
CPT/HCPCS: 72141